=== PATIENT | female | born 1970 | race Caucasian/White ===

== ENCOUNTER 2019-08-03 12:36 | Inpatient (IN) | payer BC ==
[~2019-08-03] VITALS: Ht 177.8 cm; Wt 65.0 kg
[~2019-08-03 12:36] MED LIST: CRAN400C PO; METO50TA17 PO; VALA500T PO; ZOLP10TA5 PO; [UNRECOGNIZED DRUG - CODE] PO; [UNRECOGNIZED DRUG - OTHER] PO
[2019-08-03] MEDS ORDERED: ondansetron 4mg rapidly disintigrating tab PO ONE (13:45)
[2019-08-03] MEDS ORDERED: ibuprofen tablet 400 MG TABLET PO ONE (13:45)
[2019-08-03] MEDS ORDERED: HYDROcodone/acetaminophen 5mg/325mg tablet PO ONE (13:45)
[2019-08-03 14:15] LABS: D-DIMER 1.83 MG/L FEU (0-0.50)
[2019-08-03 14:17] LABS: BASOPHILS # (AUTO) 0.1 X10'3 (0-0.2); BASOPHILS % (AUTO) 0.6 % (0-1); EOSINOPHILS # (AUTO) 0.2 X10'3 (0-0.9); EOSINOPHILS % (AUTO) 1.5 % (0-6); HEMOGLOBIN 13.4 g/dl (12.0-16.0); LYMPHOCYTES # (AUTO) 2.5 X10'3 (1.1-4.8); LYMPHOCYTES % (AUTO) 18.1 % (21-51); MEAN CORPUSCULAR HEMOGLOBIN 32.8 PG (27.0-31.0); MEAN CORPUSCULAR HGB CONC 34.4 g/dL (33.0-36.5); MEAN CORPUSCULAR VOLUME 95.4 FL (78-98); MEAN PLATELET VOLUME 7.5 FL (7.4-10.4); MONOCYTES # (AUTO) 1.1 X10'3 (0-0.9); MONOCYTES % (AUTO) 7.8 % (2-12); NEUTROPHILS # (AUTO) 9.8 X10'3 (1.8-7.7); PLATELET COUNT 413 X10'3 (140-440); RED BLOOD COUNT 4.09 X10'6 (4.20-5.60); RED CELL DISTRIBUTION WIDTH 12.4 % (11.5-14.5); WHITE BLOOD COUNT 13.7 X10'3 (4.5-11.0)
[2019-08-03 14:36] LABS: ALANINE AMINOTRANSFERASE 17 U/L (12-78); ALBUMIN 3.8 G/DL (3.4-5.0); ALBUMIN/GLOBULIN RATIO 0.9 (1.1-1.5); ALKALINE PHOSPHATASE 79 IU/L (46-116); ANION GAP 7 (8-16); ASPARTATE AMINO TRANSFERASE 10 U/L (10-37); BILIRUBIN,TOTAL 0.6 MG/DL (0.1-1.0); BLOOD UREA NITROGEN 12 MG/DL (7-18); BUN/CREATININE RATIO 17.6 (6.6-38.0); CALCIUM 9.2 MG/DL (8.5-10.1); CHLORIDE 102 MMOL/L (99-107); CREATININE 0.68 MG/DL (0.40-0.90); GLUCOSE 101 MG/DL (70-104); MAGNESIUM 2.1 MG/DL (1.5-2.4); POTASSIUM 4.1 MMOL/L (3.5-5.1); SODIUM 137 MMOL/L (135-145); TOTAL CARBON DIOXIDE 27.8 MMOL/L (24-32); TOTAL PROTEIN 8.1 G/DL (6.4-8.2); eGFR > 90 ML/MIN
[2019-08-03] MEDS ORDERED: iohexol 350MG/ML 100ml bottle IV ONE (14:54)
[2019-08-03] MEDS ORDERED: heparin 10,000 units/1 ML INJ IV ONE ×2 (15:25→15:30)
[2019-08-03] MEDS ORDERED: potassium Cl 20 mEq SR tablet PO PRN ×2 (16:10)
[2019-08-03] MEDS ORDERED: potassium CL 10mEq/100ml bag 100 ML IV PRN ×2 (16:10)
[2019-08-03] MEDS ORDERED: magnesium 4gm in 100ml NS 100 ML IV PRN (16:10)
[2019-08-03] MEDS ORDERED: ondansetron/PF 4mg/2ml inj IV PRN (16:10)
[2019-08-03] MEDS ORDERED: acetaminophen 325mg tablet PO PRN (16:10)
[2019-08-03] MEDS ORDERED: magnesium Cl slow-release 64mg tablet PO PRN (16:10)
[2019-08-03] MEDS ORDERED: magnesium 2GM in 50ml NS 50 ML IV PRN (16:10)
[2019-08-03 16:23] LABS: PARTIAL THROMBOPLASTIN TIME 29 SECONDS (22-32)
[2019-08-03] MEDS: heparin 25,000 UNIT/250ml bag 250 ML IV SCH (16:38)
[2019-08-03] MEDS: normal saline 1000ml 1,000 ML IV SCH (17:45)
[2019-08-03] MEDS: levoFLOXACIN-Levaquin 500mg/D5 100 ML IV SCH (17:55)
[2019-08-03 19:50] VITALS: BP 128/67
[2019-08-03] MEDS: K and/or MAG REPLACEMENT MC SCH (20:00)
[2019-08-03] MEDS: HYDROcodone/acetaminophen 5mg/325mg tablet PO PRN (21:02)
[2019-08-04] VITALS: BP 119/66
--- NOTE | 2019-08-04 00:07 | NUR ---
Patient in room [facility]. I have received report from ER patient arrived on the unit [id number] and had the opportunity to ask questions and assume patient care.
[2019-08-04 03:00] LABS: BASOPHILS # (AUTO) 0.1 X10'3 (0-0.2); BASOPHILS % (AUTO) 0.7 % (0-1); EOSINOPHILS # (AUTO) 0.2 X10'3 (0-0.9); EOSINOPHILS % (AUTO) 1.2 % (0-6); HEMATOCRIT 34.7 % (35.0-45.0); HEMOGLOBIN 11.9 g/dl (12.0-16.0); LYMPHOCYTES # (AUTO) 2.9 X10'3 (1.1-4.8); MEAN CORPUSCULAR HEMOGLOBIN 32.7 PG (27.0-31.0); MEAN CORPUSCULAR HGB CONC 34.4 g/dL (33.0-36.5); MEAN CORPUSCULAR VOLUME 95.1 FL (78-98); MEAN PLATELET VOLUME 7.5 FL (7.4-10.4); MONOCYTES # (AUTO) 0.9 X10'3 (0-0.9); MONOCYTES % (AUTO) 7.1 % (2-12); NEUTROPHILS # (AUTO) 9.1 X10'3 (1.8-7.7); PLATELET COUNT 348 X10'3 (140-440); RED BLOOD COUNT 3.65 X10'6 (4.20-5.60); RED CELL DISTRIBUTION WIDTH 12.2 % (11.5-14.5); WHITE BLOOD COUNT 13.2 X10'3 (4.5-11.0)
[2019-08-04 03:10] LABS: ALBUMIN 3.2 G/DL (3.4-5.0); ANION GAP 8 (8-16); BLOOD UREA NITROGEN 10 MG/DL (7-18); BUN/CREATININE RATIO 16.9 (6.6-38.0); CALCIUM 8.5 MG/DL (8.5-10.1); CHLORIDE 104 MMOL/L (99-107); CREATININE 0.59 MG/DL (0.40-0.90); GLUCOSE 106 MG/DL (70-104); SODIUM 139 MMOL/L (135-145); TOTAL CARBON DIOXIDE 27.1 MMOL/L (24-32); eGFR > 90 ML/MIN
[2019-08-04] MEDS: heparin 10,000 units/1 ML INJ IV PRN ×2 (03:25→11:05)
[2019-08-04] MEDS: heparin 25,000 UNIT/250ml bag 250 ML IV SCH ×3 (03:27→17:40)
[2019-08-04] MEDS: normal saline 1000ml 1,000 ML IV SCH ×2 (03:28→14:26)
[2019-08-04] MEDS: HYDROcodone/acetaminophen 5mg/325mg tablet PO PRN ×2 (03:29→09:46)
--- NOTE | 2019-08-04 06:00 | NUR ---
Patient in room [facility]. I have received report from Jose Cruz Brown and had the opportunity to ask questions and assume patient care. Addendum: 08/04/19 at 1854 by Laura Berry RN NICOLE Monson not Stephanie Sauer
--- NOTE | 2019-08-04 06:42 | NUR ---
Problems reprioritized. Patient report given, questions answered & plan of care reviewed with Laura RIVERA. Pt resting at this time with at bedisde. No signs of distress at this time.
--- NOTE | 2019-08-04 06:48 | NUR ---
Problems reprioritized. Patient report given, questions answered & plan of care reviewed with Laura RIVERA.
[2019-08-04 07:00] VITALS: BP 118/69
[2019-08-04] MEDS ORDERED: NORG1TAB80 PO (07:22)
[2019-08-04] MEDS ORDERED: IXEK80SY3 SQ (07:25)
[2019-08-04] MEDS: K and/or MAG REPLACEMENT MC SCH ×2 (08:00→20:00)
[2019-08-04] MEDS: levoFLOXACIN-Levaquin 500mg/D5 100 ML IV SCH (09:45)
[2019-08-04 11:00] VITALS: BP 114/69
--- NOTE | 2019-08-04 16:55 | NUR ---
Malnutrition consult: Pt admit w/ SOB hx C6/C7 vertebral titanium spaces placed 3 days ago in [place] per EMR. DX small L pleural effusion w/ PE. Pt ate muffin, fruit, and juice this AM though amount unknown per RN. Pt has normal strength, no edema, BMI 21, current 65kg wt pt stated, and well-developed per MD note. Pt does not meet minimum malnutrition criteria at this time. Addendum: 08/04/19 at [address] Amended: Links added.
--- NOTE | 2019-08-04 18:00 | NUR ---
Problems reprioritized. Patient report given, questions answered & plan of care reviewed with NICOLE Monson.
--- NOTE | 2019-08-04 18:50 | NUR ---
Patient in room [facility]. I have received report from Laura RIVERA and had the opportunity to ask questions and assume patient care.
--- NOTE | 2019-08-04 19:03 | NUR ---
Patient in room [facility]. I have received report from Laura RIVERA and had the opportunity to ask questions and assume patient care.
[2019-08-04 20:00] VITALS: BP 121/76
[2019-08-04] MEDS: valacyclovir 500mg tablet PO SCH (20:37)
[2019-08-04] MEDS: lactobacillus rhamnosus 10,000 MMU CELLS/CAPSULE PO SCH (20:37)
[2019-08-05] VITALS: BP 115/72
[2019-08-05 05:44] LABS: BASOPHILS # (AUTO) 0.1 X10'3 (0-0.2); BASOPHILS % (AUTO) 0.8 % (0-1); EOSINOPHILS # (AUTO) 0.3 X10'3 (0-0.9); EOSINOPHILS % (AUTO) 3.2 % (0-6); HEMATOCRIT 34.8 % (35.0-45.0); HEMOGLOBIN 12.1 g/dl (12.0-16.0); LYMPHOCYTES # (AUTO) 3.4 X10'3 (1.1-4.8); LYMPHOCYTES % (AUTO) 34.4 % (21-51); MEAN CORPUSCULAR HEMOGLOBIN 33.1 PG (27.0-31.0); MEAN CORPUSCULAR HGB CONC 34.7 g/dL (33.0-36.5); MEAN CORPUSCULAR VOLUME 95.3 FL (78-98); MEAN PLATELET VOLUME 7.4 FL (7.4-10.4); MONOCYTES # (AUTO) 0.8 X10'3 (0-0.9); NEUTROPHILS # (AUTO) 5.3 X10'3 (1.8-7.7); NEUTROPHILS % (AUTO) 53.6 % (42-75); PLATELET COUNT 353 X10'3 (140-440); RED BLOOD COUNT 3.65 X10'6 (4.20-5.60); RED CELL DISTRIBUTION WIDTH 12.2 % (11.5-14.5); WHITE BLOOD COUNT 9.8 X10'3 (4.5-11.0)
[2019-08-05 06:12] LABS: ALBUMIN 3.2 G/DL (3.4-5.0); ANION GAP 11 (8-16); BLOOD UREA NITROGEN 9 MG/DL (7-18); BUN/CREATININE RATIO 13.4 (6.6-38.0); CALCIUM 9.1 MG/DL (8.5-10.1); CHLORIDE 105 MMOL/L (99-107); CREATININE 0.67 MG/DL (0.40-0.90); GLUCOSE 106 MG/DL (70-104); MAGNESIUM 1.9 MG/DL (1.5-2.4); POTASSIUM 3.9 MMOL/L (3.5-5.1); SODIUM 140 MMOL/L (135-145); TOTAL CARBON DIOXIDE 24.3 MMOL/L (24-32); eGFR > 90 ML/MIN
[2019-08-05] MEDS: heparin 25,000 UNIT/250ml bag 250 ML IV SCH ×4 (06:38→21:38)
[2019-08-05] MEDS: heparin 10,000 units/1 ML INJ IV PRN (06:40)
--- NOTE | 2019-08-05 06:45 | NUR ---
Problems reprioritized. Patient report given, questions answered & plan of care reviewed with Mamie RIVERA.
--- NOTE | 2019-08-05 06:46 | NUR ---
Problems reprioritized. Patient report given, questions answered & plan of care reviewed with Mamie RIVERA.
--- NOTE | 2019-08-05 06:48 | NUR ---
Patient in room [facility]. I have received report from Iona/Juliette RIVERA and had the opportunity to ask questions and assume patient care.
[2019-08-05 07:00] VITALS: BP 115/66
[2019-08-05] MEDS: K and/or MAG REPLACEMENT MC SCH ×2 (08:00→20:00)
[2019-08-05] MEDS: valacyclovir 500mg tablet PO SCH (09:19)
[2019-08-05] MEDS: docusate sod 100mg capsule PO SCH ×2 (09:19→20:28)
[2019-08-05] MEDS: lactobacillus rhamnosus 10,000 MMU CELLS/CAPSULE PO SCH ×2 (09:19→20:28)
[2019-08-05] MEDS: multivitamins, therapeutics tablet PO SCH (09:19)
[2019-08-05] MEDS: levoFLOXACIN 500mg tablet PO SCH (11:05)
[2019-08-05 12:00] VITALS: BP 115/67
[2019-08-05] MEDS: normal saline 1000ml 1,000 ML IV SCH (16:10)
--- NOTE | 2019-08-05 18:25 | NUR ---
Problems reprioritized. Patient report given, questions answered & plan of care reviewed with Kiana Bruno RN.
--- NOTE | 2019-08-05 18:30 | NUR ---
Patient in room [facility]. I have received report from DALIA RIVERA and had the opportunity to ask questions and assume patient care.
[2019-08-05 20:00] VITALS: BP_SYST 116; BP_SYST 117; BP_SYST 118; BP_DIAS 48; BP_DIAS 57; BP_DIAS 58; BP_DIAS 60
--- NOTE | 2019-08-05 20:40 | NUR ---
DVT PTT 96 HEPARIN DRIP HELD FOR 60 MINUTES.
--- NOTE | 2019-08-05 21:40 | NUR ---
HEPARIN DRIP RESUMED AT 13OO UNITS PER HOUR DECREASED BY 200 UNITS.
[2019-08-06] VITALS: BP 125/73
[2019-08-06 05:16] LABS: BASOPHILS # (AUTO) 0.1 X10'3 (0-0.2); BASOPHILS % (AUTO) 0.7 % (0-1); EOSINOPHILS # (AUTO) 0.4 X10'3 (0-0.9); EOSINOPHILS % (AUTO) 3.8 % (0-6); HEMATOCRIT 34.2 % (35.0-45.0); LYMPHOCYTES # (AUTO) 3.6 X10'3 (1.1-4.8); LYMPHOCYTES % (AUTO) 37.2 % (21-51); MEAN CORPUSCULAR HEMOGLOBIN 33.6 PG (27.0-31.0); MEAN PLATELET VOLUME 7.7 FL (7.4-10.4); MONOCYTES # (AUTO) 0.8 X10'3 (0-0.9); MONOCYTES % (AUTO) 7.8 % (2-12); NEUTROPHILS # (AUTO) 4.9 X10'3 (1.8-7.7); NEUTROPHILS % (AUTO) 50.5 % (42-75); PLATELET COUNT 345 X10'3 (140-440); RED BLOOD COUNT 3.56 X10'6 (4.20-5.60); RED CELL DISTRIBUTION WIDTH 12.1 % (11.5-14.5); WHITE BLOOD COUNT 9.6 X10'3 (4.5-11.0)
[2019-08-06] MEDS: heparin 25,000 UNIT/250ml bag 250 ML IV SCH (05:41)
[2019-08-06 05:48] LABS: ALBUMIN 3.2 G/DL (3.4-5.0); ANION GAP 9 (8-16); BLOOD UREA NITROGEN 8 MG/DL (7-18); BUN/CREATININE RATIO 12.7 (6.6-38.0); CALCIUM 9.2 MG/DL (8.5-10.1); CHLORIDE 106 MMOL/L (99-107); CREATININE 0.63 MG/DL (0.40-0.90); GLUCOSE 107 MG/DL (70-104); MAGNESIUM 1.9 MG/DL (1.5-2.4); POTASSIUM 3.8 MMOL/L (3.5-5.1); SODIUM 140 MMOL/L (135-145); TOTAL CARBON DIOXIDE 25.2 MMOL/L (24-32); eGFR > 90 ML/MIN
--- NOTE | 2019-08-06 05:55 | NUR ---
DVT PTT 81 HEPARIN DRIP DECREASED BY 100 UNITS NOW AT 1200 UNITS PER HOUR.
--- NOTE | 2019-08-06 06:30 | NUR ---
Problems reprioritized. Patient report given, questions answered & plan of care reviewed with ENRICO RIVERA.
--- NOTE | 2019-08-06 06:38 | NUR ---
Patient in room [facility]. I have received report from TANO FREEDMAN RN and had the opportunity to ask questions and assume patient care.
[2019-08-06 07:00] VITALS: BP 130/70
[2019-08-06] MEDS ORDERED: apixaban 5mg tablet PO SCH (08:00)
[2019-08-06] MEDS: valacyclovir 500mg tablet PO SCH (10:20)
[2019-08-06] MEDS: levoFLOXACIN 500mg tablet PO SCH (10:20)
[2019-08-06] MEDS: multivitamins, therapeutics tablet PO SCH (10:20)
[2019-08-06] MEDS: docusate sod 100mg capsule PO SCH (10:21)
[2019-08-06] MEDS: lactobacillus rhamnosus 10,000 MMU CELLS/CAPSULE PO SCH (10:21)
[2019-08-06 11:00] VITALS: BP 116/49
[2019-08-06] MEDS ORDERED: APIX5TAB3 PO (11:45)
--- NOTE | 2019-08-06 19:46 | NUR ---
PATIENT STABLE AND APPROPRIATE FOR DISCHARGE, IV TAKEN OUT, EDUCATION GIVEN, ALL BELONGINGS SENT WITH PATIENT, MEDS CALLED IN TO PREFERRED PHARMACY, PATIENT TAKEN TO LOBBY IN WHEELCHAIR TO AN AWAITING CAR WHERE WILL TAKE PATIENT HOME
[2019-09-01] MEDS ORDERED: IXEKIZUMAB SQ SCH (08:00)
== END 2019-08-06 12:29 | disposition home or self-care (01) | DRG 176 ==
LOC: ER 12:36 → ED HOLD 16:10 → SUR 3N 19:45
PROVIDERS: ADMIT Internal Medicine; ATTEND Hospitalist
PROC: B32T1ZZ Computerized Tomography (CT Scan) of Left Pulmonary Artery using Low Osmolar Contrast (ICD-10-PCS; principal; 2019-08-03)
PROC: B3201ZZ Computerized Tomography (CT Scan) of Thoracic Aorta using Low Osmolar Contrast (ICD-10-PCS; 2019-08-03)
PROC: B32S1ZZ Computerized Tomography (CT Scan) of Right Pulmonary Artery using Low Osmolar Contrast (ICD-10-PCS; 2019-08-03)
DX: I26.99 Other pulmonary embolism without acute cor pulmonale (principal); J90 Pleural effusion, not elsewhere classified; J98.11 Atelectasis; G89.29 Other chronic pain; M54.9 Dorsalgia, unspecified; I48.91 Unspecified atrial fibrillation; Z90.49 Acquired absence of other specified parts of digestive tract
CPT/HCPCS: 36415; 71045; 71275; 80048; 80053; 83735; 83880; 84484; 85025; 85379; 85730; 87081; 93005; 93306; 99285; G0378; J1644; J1956; J7030; Q9967